=== PATIENT | male | born 1955 | race Caucasian/White ===

== ENCOUNTER 2018-07-27 09:49 | Emergency (ER) | payer OTHER ==
[~2018-07-27] VITALS: Ht 177.8 cm; Wt 100.8 kg
[2018-07-27 09:55] VITALS: BP 164/103
[2018-07-27] MEDS ORDERED: TRIAMCINOLONE ACETONIDE 40 MG/ML, 1ML IM ONE (10:30)
== END 2018-07-27 10:50 | disposition home or self-care (01) ==
LOC: ED 10:35
DX: L40.0 Psoriasis vulgaris (principal); M46.90 Unspecified inflammatory spondylopathy, site unspecified
CPT/HCPCS: 96372; 99283; J3301; J7512